=== PATIENT | female | born 1960 ===

== ENCOUNTER 2020-11-30 13:58 | Observation (INO) | payer OTHER, SELFPAY ==
[~2020-11-30 13:58] MED LIST: Iopamidol-370 76% 500 ML 1 ML ONE
[2020-11-30 14:17] LABS: #Basophils 0.1 thou/uL (0.0-0.2); #Eosinphils 0.2 thou/uL (0.0-0.7); #Monocytes 0.4 thou/uL (0.11-0.59); #Neutrophils 4.6 thou/uL (1.40-6.50); %Basophils 1.9 % (0.0-1.0); %Eosinophils 3.4 % (0.0-10.0); %Lymphocytes 26.7 % (21.0-51.0); %Monocytes 5.6 % (0.0-10.0); %Neutrophils 62.5 % (42.0-75.0); Hemoglobin 13.8 g/dL (12.0-16.0); Mean Corpuscular HGB CONC 33.6 g/dL (32.0-36.0); Mean Corpuscular Hemoglobin 31.5 pg (27.0-31.0); Mean Corpuscular Volume 93.7 fL (78.0-98.0); Mean Platelet Volume 8.9 fL (7.4-10.4); Platelet Count 206 thou/uL (130-400); RBC Distribution Width 12.6 % (11.5-14.5); Red Blood Cell (RBC) Count 4.38 mill/uL (4.20-5.40); White Blood Cell (WBC) Count 7.3 thou/uL (4.8-10.8)
[2020-11-30] MEDS ORDERED: Midazolam HCl 2 mg/2 ml Vial ONE (14:17)
[2020-11-30] MEDS ORDERED: Fentanyl 100 MCG/2 ML VIAL ONE (14:17)
[2020-11-30] MEDS ORDERED: Ondansetron PF 4 MG/2 ML Vial ONE (14:22)
[2020-11-30 14:24] LABS: INR-International Normal Ratio 0.9; PTT 30.6 sec (22.9-36.1); Prothrombin Time 12.8 sec (12.0-14.7)
[2020-11-30] MEDS ORDERED: Sodium Chloride 0.9% 200 ML IV PRN (14:35)
[2020-11-30] MEDS ORDERED: Ondansetron ORAL SOLN. 4 MG/5 ML UDCUP PO PRN (14:38)
[2020-11-30 17:23] LABS: Albumin 3.7 g/dL (3.5-5.0)
[2020-11-30 17:25] LABS: Calcium 8.5 mg/dL (7.8-10.44); Chloride 107 mmol/L (98-107); Potassium 3.7 mmol/L (3.5-5.1); Sodium 140 mmol/L (136-145)
[2020-11-30 17:26] LABS: Globulin 2.9 g/dL (2.4-3.5); Glucose 116 mg/dL (70-105); Protein, Total 6.6 g/dL (6.0-8.3)
[2020-11-30 17:28] LABS: Anion Gap 9 mmol/L (10-20); Bilirubin, Total 0.3 mg/dL (0.2-1.2); Carbon Dioxide 28 mmol/L (22-29)
[2020-11-30 17:29] LABS: Alkaline Phosphatase 44 U/L (40-110); Calc. Creatinine Clearance 0 mL/min (70-130)
[2020-11-30 17:30] LABS: BUN (Urea Nitrogen) 11 mg/dL (9.8-20.1)
[2020-11-30 17:31] LABS: AST (SGOT) 17 U/L (5-34)
[2020-11-30 17:32] LABS: ALT (SGPT) 21 U/L (8-55); CK (CPK) 138 U/L (29-168)
[2020-11-30] MEDS ORDERED: Iopamidol 370 76% 100 ML VIAL ONE (17:47)
--- NOTE | 2020-11-30 18:27 | CT ---
CT arteriogram chest with IV contrast and 3-D imaging HISTORY: Chest pain. FINDINGS: There is good contrast opacification pulmonary arteries and thoracic aorta with normal bran mathieu of the great vessels at the aortic arch. Mild arterial calcification. Lungs are well-inflated with minimal dependent bibasilar atelectasis. No pleural fluid or pneumothora x. No mediastinal adenopathy. IMPRESSION : No acute abnormalities are demonstrated.
--- NOTE | 2020-11-30 18:36 | RAD ---
TWO VIEW CHEST: 11/30/20 HISTORY: Chest pain. The lungs are clear. No infiltrate. Heart and mediastinum unremarkable. Osseous structures unremarkab le. IMPRESSION: No acute process. POS: AGW
[2020-12-01 01:57] LABS: SARS-CoV-2 PCR by NAA Not Detected (NotDetected)
[2020-12-01 03:48] LABS: #Basophils 0.1 thou/uL (0.0-0.2); #Eosinphils 0.2 thou/uL (0.0-0.7); #Lymphocytes 1.2 thou/uL (1.20-3.40); #Monocytes 0.2 thou/uL (0.11-0.59); #Neutrophils 2.7 thou/uL (1.40-6.50); %Basophils 1.4 % (0.0-1.0); %Eosinophils 4.8 % (0.0-10.0); %Lymphocytes 27.5 % (21.0-51.0); %Monocytes 4.9 % (0.0-10.0); %Neutrophils 61.5 % (42.0-75.0); Hemoglobin 11.8 g/dL (12.0-16.0); Mean Corpuscular HGB CONC 33.5 g/dL (32.0-36.0); Mean Corpuscular Hemoglobin 31.6 pg (27.0-31.0); Mean Corpuscular Volume 94.4 fL (78.0-98.0); Platelet Count 194 thou/uL (130-400); RBC Distribution Width 12.6 % (11.5-14.5); Red Blood Cell (RBC) Count 3.73 mill/uL (4.20-5.40); White Blood Cell (WBC) Count 4.4 thou/uL (4.8-10.8)
[2020-12-01 04:07] LABS: ALT (SGPT) 17 U/L (8-55); AST (SGOT) 15 U/L (5-34); Albumin 3.5 g/dL (3.5-5.0); Alkaline Phosphatase 40 U/L (40-110); Anion Gap 12 mmol/L (10-20); BUN (Urea Nitrogen) 10 mg/dL (9.8-20.1); Bilirubin, Total 0.3 mg/dL (0.2-1.2); Calc. Creatinine Clearance 143 mL/min (70-130); Calcium 8.9 mg/dL (7.8-10.44); Carbon Dioxide 25 mmol/L (22-29); Cardiac Risk 4.7 (Less than 4.5); Chloride 106 mmol/L (98-107); Cholesterol 165 mg/dl (< 200 Desired); Globulin 2.9 g/dL (2.4-3.5); Glucose 127 mg/dL (70-105); HDL Cholesterol 35 mg/dL (>60 Neg Risk); LDL Cholesterol, Calculated 108 mg/dL; Potassium 4.1 mmol/L (3.5-5.1); Protein, Total 6.4 g/dL (6.0-8.3); Sodium 139 mmol/L (136-145); Triglycerides 111 mg/dL (Less than 150)
[2020-12-01] MEDS: Acetaminophen/Codeine 30-300mg Tablet PO PRN ×2 (04:13→12:15)
--- NOTE | 2020-12-01 05:39 | HP ---
CHIEF COMPLAINT: Chest pain. HISTORY OF PRESENT ILLNESS: Ms. Robles is a pleasant 60-year-old female, who comes to the hospital for chest pain. She started having chest pain about an hour before presentation. She felt like a pressure sensation in the middle of the sternum over the midsternal area. She came in via ambulance. EKG was done en route and showed a new left bundle-branch block, so Cardiology was called immediately for STEMI activation. On my evaluation, Ms. Robles is having severe midsternal pain. She rates it about 5 or 6/10. It is ongoing. It radiates to the right shoulder and sometimes to the left shoulder. She denies ever having any issues with the heart in the past. PAST MEDICAL HISTORY: None. PAST SURGICAL HISTORY: Partial hysterectomy secondary to fibroids and bleeding. SOCIAL HISTORY: No alcohol, tobacco, or drugs. FAMILY HISTORY: Noncontributory. ALLERGIES: NO KNOWN DRUG ALLERGIES. OUTPATIENT MEDICATIONS: None per her report. REVIEW OF SYSTEMS: 12-point review of systems was done and was found to be negative other than stated in the history of present illness. PHYSICAL EXAMINATION: VITAL SIGNS: Temperature 97.2, pulse 87, respiratory rate 16, saturating 98% on room air, blood pressure 138/62. GENERAL: Awake, alert, and oriented x3, in pain. HEENT: Normocephalic and atraumatic. NECK: Supple. LUNGS: Clear. CARDIOVASCULAR: S1, S2. No S3 or S4. No murmurs. No rubs. ABDOMEN: Soft. Positive bowel sounds. EXTREMITIES: No edema. SKIN: Warm and dry. LABORATORY DATA: Laboratory work is pending on this evaluation. CBC is up with a hemoglobin of 13.8, white count of 7, hematocrit 41, platelet count of 206. ASSESSMENT: 1. Chest pain. 2. New onset left bundle-branch block. 3. Symptoms consistent with acute myocardial infarction. PLAN: We will take her emergently to the catheterization lab. We will do right groin access. We spoke with her briefly about risks and benefits of the procedure as this is considered an emergent situation as she is having ongoing chest pain and a new left bundle-branch block. We will have further recommendations per results of coronary angiogram. ADDENDUM: 1. Heart catheterization was performed. She has normal coronaries. We will get an echocardiogram to make sure there is nothing else going on in her heart, and will get a CT of the chest with contrast to make sure she is not having a pulmonary embolism. 2. I doubt that this is the case; however, we will continue to monitor. She states her pain is not going down her right leg. 3. 50 minutes critical care time. Job ID: [id number]
[2020-12-01 08:26] VITALS: BMI 38.8
[2020-12-01 13:12] VITALS: BP 118/59; TEMP 97.3
[2020-12-01 14:53] LABS: #Basophils 0.1 thou/uL (0.0-0.2); #Eosinphils 0.2 thou/uL (0.0-0.7); #Lymphocytes 1.6 thou/uL (1.20-3.40); #Monocytes 0.4 thou/uL (0.11-0.59); #Neutrophils 3.4 thou/uL (1.40-6.50); %Basophils 1.5 % (0.0-1.0); %Eosinophils 4.2 % (0.0-10.0); %Lymphocytes 27.8 % (21.0-51.0); %Monocytes 7.3 % (0.0-10.0); %Neutrophils 59.1 % (42.0-75.0); Hemoglobin 11.7 g/dL (12.0-16.0); Mean Corpuscular HGB CONC 33.3 g/dL (32.0-36.0); Mean Corpuscular Hemoglobin 31.6 pg (27.0-31.0); Mean Corpuscular Volume 94.7 fL (78.0-98.0); Mean Platelet Volume 8.2 fL (7.4-10.4); Platelet Count 200 thou/uL (130-400); RBC Distribution Width 12.5 % (11.5-14.5); Red Blood Cell (RBC) Count 3.72 mill/uL (4.20-5.40); White Blood Cell (WBC) Count 5.7 thou/uL (4.8-10.8)
--- NOTE | 2020-12-01 21:05 | CT ---
CT ABDOMEN AND PELVIS PERFORMED WITHOUT CONTRAST ENHANCEMENT: 12/01/20 HISTORY: Lower abdominal pain, evaluation for retroperitoneal hemorrhage. There is subsegmental atelectatic changes in the lung bases. The liver shows an element of fatty mccord ge. The spleen, pancreas and gallbladder regions appear unremarkable given limitations of a noncontra st exam. Right and left adrenal glands and right and left kidneys are normal in size. No free fluid. No signs of a bowel wall injury. CT OF PELVIS PERFORMED WITHOUT CONTRAST ENHANCEMENT: Fat containing paraumbilical hernia is seen. No adenopathy, mass or free fluid. No evidence of any re troperitoneal hemorrhage. Soft tissue changes in the right groin region are probably related to javier terization. Review of osseous structures show no concerning findings. IMPRESSION: 1. No evidence of any retroperitoneal bleed. There is some soft tissue changes in the right groi n region presumably related to catheterization. No hematoma identified in this area. 2. Fatty changes of the liver. 3. Fat containing paraumbilical hernia. POS: MARY
--- NOTE | 2020-12-02 10:50 | DIS ---
DATE OF ADMISSION: 11/30/2020 DATE OF DISCHARGE: 12/01/2020 DISCHARGING PHYSICIAN: Iban Fried MD PRIMARY DIAGNOSES: 1. Noncardiac chest pain. 2. Left bundle branch block, new onset. PROCEDURES PERFORMED: 1. Left heart catheterization showing normal coronary arteries. 2. CT of the chest showing no evidence of masses or pulmonary embolism to account for her chest pain. 3. CT of the abdomen and pelvis showing no evidence of retroperitoneal bleed and just a very small fat containing periumbilical hernia. Also, fatty liver. 4. Echocardiogram showing normal valvular structures and normal LV function. SUMMARY: Ms. Robles is a very pleasant 60-year-old female, who comes to the hospital for chest pain. She came in clutching her chest, stating her pain was 10/10. Her EKG showed a left bundle-branch block. She had never had an EKG before, so this has to be considered new. Hence, she was taken emergently to the catheterization lab, where she was found to have wide open, clean, smooth looking coronaries. She was admitted overnight. She had a small drop in her hemoglobin about two points, thought to be related to dilution from IV fluids and the expected drop in hemoglobin from a vascular procedure. However, she was complaining of lower back pain, so a CT of the abdomen and pelvis performed that showed no evidence of retroperitoneal hematoma. No evidence of even hematoma on the groin site. She had a CT of the chest to make sure that her chest pain was not related to any other type of masses or pulmonary embolism, this was all negative. Her blood work remained completely unremarkable. Her sugars are slightly high. She will try to establish care with a primary care physician to start treatment for prediabetes versus diabetes. She was discharged home on no medications as she most likely had noncardiac chest pain. There may have been a component of anxiety in her situation. She will consult with her primary care doctor in the next few weeks for this. She tells me she does not have one. She was provided a list of primary care doctors from the [facility] to contact one and make an appointment. 45 minutes spent at bedside for discharge instructions. Job ID: [id number]
== END 2020-12-01 19:39 | disposition home or self-care (01) ==
LOC: ERS 13:58 → 2NO 14:35
PROVIDERS: ADMIT Internal Medicine Cardiovascular Disease; ATTEND Internal Medicine Cardiovascular Disease
PROC: 4A023N7 Measurement of Cardiac Sampling and Pressure, Left Heart, Percutaneous Approach (ICD-10-PCS; principal; 2020-11-30)
PROC: B2111ZZ Fluoroscopy of Multiple Coronary Arteries using Low Osmolar Contrast (ICD-10-PCS; 2020-11-30)
DX: R07.89 Other chest pain (principal); I44.7 Left bundle-branch block, unspecified; I70.90 Unspecified atherosclerosis; K42.9 Umbilical hernia without obstruction or gangrene; K76.0 Fatty (change of) liver, not elsewhere classified; M54.5 Low back pain; Z20.822 Contact with and (suspected) exposure to COVID-19
CPT/HCPCS: 36415; 71046; 71275; 74176; 76942; 80053; 80061; 82550; 84443; 84484; 85025; 85610; 85730; 86850; 86900; 86901; 87635; 93005; 93306; 93458; 94760; 99152; G0378; J2250; J2405; J3010; Q9967; U0003; U0005